=== PATIENT | male | born 1990 | race Caucasian/White ===

== ENCOUNTER 2023-02-22 18:23 | Outpatient (CLI) | payer SELFPAY | END 2023-02-22 18:24 | disposition home or self-care (01) | PROVIDERS: PCP Nurse Practitioner Family; Visit Provider Family Medicine | DX: F10.129 Alcohol abuse with intoxication, unspecified (principal) | CPT/HCPCS: A0425; A0427 ==

== ENCOUNTER 2023-05-22 17:27 | Outpatient (CLI) | payer OTHER, SELFPAY | END 2023-05-22 17:28 | disposition home or self-care (01) | LOC: AMB 05-23 22:25 | PROVIDERS: PCP Nurse Practitioner Family; Visit Provider Family Medicine | DX: F10.129 Alcohol abuse with intoxication, unspecified (principal) | CPT/HCPCS: A0425; A0427 ==

== ENCOUNTER 2023-06-17 17:54 | Outpatient (CLI) | payer OTHER, SELFPAY | END 2023-06-17 17:55 | disposition home or self-care (01) | LOC: AMB 06-20 10:57 | PROVIDERS: PCP Nurse Practitioner Family; Visit Provider Family Medicine | DX: F10.129 Alcohol abuse with intoxication, unspecified (principal) | CPT/HCPCS: A0425; A0429 ==